=== PATIENT | male | born 1960 | race African-American/Black ===

== ENCOUNTER 2017-02-13 10:22 | Emergency (ER) | payer OTHER ==
[~2017-02-13] VITALS: Ht 185.4 cm; Wt 104.3 kg
--- NOTE | 2017-02-13 10:35 | ED PSYCHIATRIC COMPLAINT ---
See Addendum History of Present Illness General Chief Complaint: ETOH/Drug Related Complaint Stated Complaint: PT HERE FOR DETOX Source: patient Exam Limitations: no limitations Vital Signs & Intake/Output Vital Signs & Intake/Output Vital Signs Date Time Temp Pulse Resp B/P Pulse O2 O2 Flow FiO2 Ox Delivery Rate 02/14 0608 98.3 82 18 139/76 96 Room Air 02/14 0530 98.3 82 18 139/79 02/14 0408 98.1 82 18 138/73 94 Room Air 02/14 0130 99.3 86 18 128/78 02/14 0130 99.3 86 18 128/78 96 Room Air 02/13 2358 99.8 86 20 125/70 94 Room Air 02/13 2330 99.8 86 20 125/70 02/13 2252 97.3 88 18 138/74 / 2251 97.3 88 18 138/74 93 Room Air 02/13 2125 98.5 90 20 112/63 94 Room Air 02/13 2124 98.5 90 18 112/63 02/13 1958 98.9 87 24 110/62 / 1958 98.9 87 24 110/62 96 Room Air 02/13 1820 98.6 90 22 105/61 / 1820 98.6 90 22 105/61 97 Room Air / 1622 97.5 87 16 112/75 04/ 1621 97.5 87 16 112/75 95 Room Air / 1436 97.5 91 18 101/70 04/ 1404 97.5 91 18 101/70 94 Room Air 02/13 1209 96 / 1209 96.4 79 20 140/81 96 Room Air 02/13 1208 96.4 79 20 140/81 / 1035 97.7 68 20 115/74 97 Room Air ED Intake and Output 02/14 0000 02/13 1200 Intake Total 240 Output Total Balance 240 Intake, Oral 240 Patient 230 lb Weight Allergies Coded Allergies: No Known Allergies (02/13/17) Reconcile Medications Amlodipine Besylate 10 MG TABLET 1 TAB PO DAILY HTN (Reported) Nadolol 80 MG TABLET 1 TAB PO DAILY HTN (Reported) Naproxen (Naprosyn) (Unknown Strength) TABLET (Unknown Dose) PO PRN PRN PAIN (Reported) Oxymetazoline HCl (Afrin) (Unknown Strength) SPRAY (Unknown Dose) PRN PRN ALLERGIES (Reported) Triage Nurses Notes Reviewed? yes Onset: Abrupt Duration: week(s): (FEW) Timing: single episode today Severity: mild Associated Symptoms: WANTS TO QUIT SO HE WONT HPI: 56 year old male with history of alcohol abuse which patient reports started at age of 7 presents to the ER for detox. This morning he had 5 beers and a few shots prior to arrival. He drinks daily, never goes more than half a day without alochol. Positive smoker. Recently used cocaine last weekend which he started using in his 20's. No history of alcohol withdrawal seizures. Has never been sober for long enought to know what his symptoms are. History of alcoholic cirrhosis, portal hypertension. He wants to stop drinking becuse he is already killing himself. (AKIN FLETCHER MD) Past History Travel History Traveled to [place] past 21 day No Medical History Any Pertinent Medical History? see below for history Gastrointestinal: colon stricture Hepatic: cirrhosis Psychiatric: alcohol dependence, substance abuse Surgical History Surgical History: non-contributory Family History Hx Contributory? No (AKIN FLETCHER MD) Review of Systems Review of Systems Constitutional: Denies: chills, fever. EENTM: Reports: no symptoms. Respiratory: Denies: cough, short of breath. Cardiovascular: Denies: chest pain. GI: Reports: no symptoms. Genitourinary: Reports: no symptoms. Musculoskeletal: Reports: no symptoms. Skin: Reports: no symptoms. Neurological/Psychological: Denies: anxiety, confusion, depressed. Hematologic/Endocrine: Denies: bruising, bleeding, polyuria, polydipsia. Immunologic/Allergic: Reports: no symptoms. All Other Systems: Reviewed and Negative (AKIN FLETCHER MD) Physical Exam Physical Exam General Appearance: well developed/nourished, alert, awake, mild distress Head: atraumatic Eyes: Bilateral: PERRL, EOMI. Ears, Nose, Throat: normal pharynx, normal ENT inspection, hearing grossly normal Neck: normal inspection, supple Respiratory: chest non-tender, wheezing Cardiovascular: regular rate/rhythm Gastrointestinal: soft, DISTENDED, EVIDENCE OF PORTAL HYPERTENSION Extremities: normal range of motion Neurological/Psychiatric: awake, alert, calm Appearance/Memory/Insight: appropriate appearance, appropriate insight, neat Behavoir/Eye Contact/Speech: cooperative, normal speech, good eye contact Thoughts/Hallucinations: no apparent hallucination Skin: intact, normal color, warm/dry SAD PERSONS Done? patient not suicidal (JUSTINE PONCE,AKIN) Progress Differential Diagnosis: ALCOHOL DEPENDENCE, ALCOHOL ABUSE, CIRRHOSIS, HEPATITIS C Plan of Care: Orders Procedure Date/time Status CASE MANAGEMENT CONSULT 02/14 657 Active Regular Diet 02/13 D Active Pathway - chart 02/14 2016 Active CIWA 02/13 1041 Active ETHANOL 02/13 104 Complete COMPREHENSIVE METABOLIC PANEL 02/13 1041 Complete CBC WITHOUT DIFFERENTIAL 02/13 1041 Complete URINE DRUG SCREEN FOR ER ONLY 02/13 103 Complete URINALYSIS 02/13 103 Complete Current Medications Sig/Danielito Start time Last Medication Dose Stop Time Status Admin Lorazepam 2 MG Q2P PRN 02/13 2015 AC (Ativan) Lorazepam 1 MG Q2P PRN 02/13 2015 AC (Ativan) Laboratory Tests 02/13/17 1112: Anion Gap 9, Estimated GFR > 60, BUN/Creatinine Ratio 11.4, Glucose 108 H, Calcium 9.3, Total Bilirubin 1.3, AST 141 H, ALT 60, Alkaline Phosphatase 137 H, Total Protein 9.9 H, Albumin 3.9, Globulin 6.0 H, Albumin/Globulin Ratio 0.7 L, CBC w Diff NO MAN DIFF REQ, RBC 4.82, MCV 94.7 H, MCH 31.7 H, RDW 14.9 H, MPV 7.9, Gran % 43.4, Lymphocytes % 37.7, Monocytes % 14.1 H, Eosinophils % 4.2, Basophils % 0.6, Absolute Granulocytes 3.2, Absolute Lymphocytes 2.8, Absolute Monocytes 1.0 H, Absolute Eosinophils 0.3, Absolute Basophils 0, PUBS MCHC 33.5, Serum Alcohol 264.0 02/13/17 1037: Urine Opiates Screen < 100.00, Methadone Screen < 40, Barbiturate Screen < 60, Ur Phencyclidine Scrn < 6.00, Amphetamines Screen < 100, U Benzodiazepines Scrn < 85, Urine Cocaine Screen 342 H, Urine Cannabis Screen < 5.00, Urine Color STRAW, Urine Clarity CLEAR, Urine pH 6.0, Ur Specific [place] <= 1.005, Urine Protein NEG, Urine Ketones NEG, Urine Nitrite NEG, Urine Bilirubin NEG, Urine Urobilinogen 1.0, Ur Leukocyte Esterase NEG, Ur Microscopic EXAM NOT REQUIRED, Urine Hemoglobin NEG, Urine Glucose NEG 7 PM CIWA 7, PATIENT RESTING COMFORTABLY. WILL CONTINUE TO MONITOR FOR WITHDRAWAL SYMPTOMS TO DETERMINE APPROPRIATENESS FOR HIGHWATCH. (AKIN FLETCHER MD) Hand-Off Endorsed To: KEISHA KING MD Endorsed Time: 1918 Pending: other (CIWA PROTOCOL) (AKIN FLETCHER MD) Hand-Off Endorsed To: ANJU FERNANDES MD Endorsed Time: 07 Pending: consult (ETOH DETOX), other (RALPH PONCE,KEISHA Ramirez) Comments: 02/14/17 7:05a pt signed out to me by dr king at shift changeover. (DENA PONCE,ANJU Cheema) Departure Departure Disposition: STILL A PATIENT Condition: Stable Clinical Impression Primary Impression: Alcohol abuse Secondary Impressions: Alcohol intoxication Departure Forms: Customer Survey General Discharge Information (AKIN FLETCHER MD)
[2017-02-13] MEDS ORDERED: AMLODIPINE BESY10 M1 PO (11:30)
[2017-02-13] MEDS ORDERED: NADOLOL80 M1 PO (11:30)
[2017-02-13] MEDS ORDERED: NAPROSYN500 M1 PO (11:31)
[2017-02-13] MEDS ORDERED: AFRIN30 ML (11:31)
[2017-02-13 11:54] LABS: ABSOLUTE BASOPHIL COUNT 0 /CUMM (0.0-0.2); ABSOLUTE EOSINOPHIL COUNT 0.3 /CUMM (0.0-0.7); ABSOLUTE GRANULOCYTE CT 3.2 /CUMM (1.4-6.5); ABSOLUTE LYMPH COUNT 2.8 /CUMM (1.2-3.4); BASOPHIL % 0.6 % (0.0-2.0); EOSINOPHIL % 4.2 % (0-5); GRANULOCYTE % 43.4 % (42.2-75.2); HEMATOCRIT 45.7 % (42-52); MEAN CORPUSCULAR HGB 31.7 PG (27.0-31.0); MEAN CORPUSCULAR HGB CONC 33.5 G/DL (33.0-37.0); MEAN CORPUSCULAR VOLUME 94.7 FL (80.0-94.0); MEAN PLATELET VOLUME 7.9 FL (7.4-10.4); PLATELET COUNT 180 /CUMM (130-400); RBC DISTRIBUTION WIDTH 14.9 % (11.5-14.5); RED BLOOD CELL CT 4.82 /CUMM (4.70-6.10); WHITE BLOOD CELL COUNT 7.4 /CUMM (4.8-10.8)
[2017-02-14 10:00] VITALS: BP 128/78
== END 2017-02-14 13:00 ==
LOC: ERH 10:22
PROVIDERS: Emergency Medicine
DX: F10.129 Alcohol abuse with intoxication, unspecified (principal)
CPT/HCPCS: 80307; 81003; G0480